=== PATIENT | female | born 1980 | race Hispanic/Latino ===

== ENCOUNTER 2017-12-16 06:36 | Day surgery (SDC) | payer MEDICAID ==
[2017-12-15 13:01] VITALS: BP 99/73
[2017-12-15 13:03] LABS: BASOPHILS % (AUTO) 0.8 % (0.0-5.0); EOSINOPHILS % (AUTO) 3.8 % (0.0-8.0); HEMATOCRIT 44.6 % (36-48); LYMPHOCYTES % (AUTO) 27.5 % (21.0-51.0); MEAN CORPUSCULAR HEMOGLOBIN 32.1 pg (27.0-33.0); MEAN CORPUSCULAR HGB CONC 34.7 g/dL (32.0-36.0); MEAN CORPUSCULAR VOLUME 92.5 fL (79-99); MONOCYTES % (AUTO) 11.2 % (3.0-13.0); NEUTROPHILS % (AUTO) 56.7 % (40.0-77.0); PLATELET COUNT (AUTO) 148 K/uL (130-400); RED BLOOD CELL COUNT(AUTO) 4.82 MIL/uL (4.00-5.50); RED CELL DISTRIBUTION WIDTH 12.3 % (11.0-15.5); WHITE BLOOD COUNT (AUTO) 5.4 K/uL (4.8-10.8)
[2017-12-15 13:05] LABS: APPEARANCE,URINE Cloudy (CLEAR); BILIRUBIN,URINE Small (NEGATIVE); COLOR,URINE Dark Yellow (YELLOW); GLUCOSE, URINE (UA) Negative (NEGATIVE); KETONES,URINE Trace mg/dL (NEGATIVE); LEUKOCYTE ESTERASE ,URINE Small (NEGATIVE); NITRATE,URINE Negative (NEGATIVE); OCCULT BLOOD,URINE Large (NEGATIVE); PH,URINE 5.5 (5.0-8.0); PROTEIN,URINE POS 2+ (NEGATIVE)
[2017-12-15 13:13] LABS: ALBUMIN 3.6 g/dL (3.5-5.0); BILIRUBIN,TOTAL 0.5 mg/dL (0.2-1.0); POTASSIUM 3.4 mmol/L (3.5-5.1); TOTAL PROTEIN, SERUM 8.4 g/dL (6.0-8.3)
[2017-12-15 13:14] LABS: BACTERIA,URINE Rare /HPF (None Seen); SQUAMOUS EPITHELIAL CELL,UR Rare /HPF (0-2); WBC,URINE 0-1 /HPF (0-1)
[2017-12-15 13:15] LABS: MUCUS,URINE Moderate LPF (None Seen)
[2017-12-15 13:20] LABS: INR 1.02 (0.85-1.15); PARTIAL THROMBOPLASTIN TIME 27.5 SEC (26.3-35.5); PROTHROMBIN TIME 10.7 SEC (9.6-11.6)
[~2017-12-16] VITALS: Ht 162.6 cm; Wt 103.9 kg
[2017-12-16] VITALS (16 sets, daily range): BP systolic 111–161; BP diastolic 61–95
[2017-12-16] MEDS: CEFAZOLIN SODIUM 1 GM VIAL IVP SCH ×2 (06:00→07:38)
[~2017-12-16 06:36] MED LIST: ACET-66 PO; FURO20TA6 PO
[2017-12-16] MEDS ORDERED: LACTATED RINGERS 1000ML 1,000 ML IV ONE (07:18)
[2017-12-16] MEDS ORDERED: PROPOFOL 10 MG/ML 20ML VIAL IV ONE (07:33)
[2017-12-16] MEDS ORDERED: ONDANSETRON HCL MDV 20ML 2 MG/ML VIAL ONE (07:33)
[2017-12-16] MEDS ORDERED: SUCCINYLCHOLINE CHLORIDE 20 MG/ML 10 ML VIAL ONE (07:33)
[2017-12-16] MEDS ORDERED: LIDOCAINE PF 2% 5ML ABBOJECT ONE (07:33)
[2017-12-16] MEDS ORDERED: ROCURONIUM BROMIDE 10MG/1ML 5ML VL ONE (07:33)
[2017-12-16] MEDS ORDERED: MIDAZOLAM HCL 1 MG/ML 2ML VIAL ONE (07:33)
[2017-12-16] MEDS ORDERED: FENTANYL CITRATE PF 50 MCG/1 ML 2ML VIAL ONE (07:34)
[2017-12-16] MEDS ORDERED: FAMOTIDINE/PF 20 MG/2 ML VIAL IV ONE (08:19)
[2017-12-16 08:30] LABS: CREATININE 0.7 mg/dL (0.5-1.5); POTASSIUM 3.8 mmol/L (3.5-5.1)
[2017-12-16] MEDS ORDERED: METOPROLOL TARTRATE 1 MG/ML 5ML VIAL IV ONE (08:44)
[2017-12-16] MEDS ORDERED: ESMOLOL HCL 10 MG/ML 10 ML VIAL ONE (08:44)
[2017-12-16] MEDS ORDERED: KETOROLAC TROMETHAMINE 30MG/ML ONE (09:12)
[2017-12-16] MEDS ORDERED: MORPHINE SULFATE 4 MG/1ML SYG ONE (09:13)
== END 2017-12-16 11:00 | disposition home or self-care (01) ==
LOC: DAH 06:36
DX: G56.01 Carpal tunnel syndrome, right upper limb (principal); M65.88 Other synovitis and tenosynovitis, other site; O24.439 Gestational diabetes mellitus in the puerperium, unspecified control; Z79.899 Other long term (current) drug therapy
CPT/HCPCS: 25115; 36415 ×2; 64721; 71045; 80048; 80053; 81001; 84703; 85025; 85610; 85730; 88305; 93005; A4218; A4649; A4930; A6223; A6446; J0330; J0690; J2001; J2250; J2270; J2704; J3010; J3490 ×4; J7120; Q4051; J1885

== ENCOUNTER 2021-11-20 20:11 | Inpatient (IN) | payer MEDICAID ==
[~2021-11-20] VITALS: Ht 162.6 cm; Wt 105.0 kg
[2021-11-20] MEDS ORDERED: 0.9%NACL 1000ML 1,000 ML IV ONE (20:30)
[2021-11-20 20:46] LABS: BASOPHILS % (AUTO) 0.2 % (0.0-5.0); HEMATOCRIT 32.5 % (36-48); MEAN CORPUSCULAR HEMOGLOBIN 23.7 pg (27.0-33.0); MEAN CORPUSCULAR HGB CONC 31.4 g/dL (32.0-36.0); MEAN CORPUSCULAR VOLUME 75.4 fL (79-99); MONOCYTES % (AUTO) 6.1 % (3.0-13.0); NEUTROPHILS % (AUTO) 85.2 % (40.0-77.0); PLATELET COUNT (AUTO) 264 K/uL (130-400); RED BLOOD CELL COUNT(AUTO) 4.31 MIL/uL (4.00-5.50); RED CELL DISTRIBUTION WIDTH 17.5 % (11.0-15.5)
[2021-11-20 20:51] LABS: APPEARANCE,URINE Clear (CLEAR); BILIRUBIN,URINE Negative (NEGATIVE); COLOR,URINE Dark Yellow (YELLOW); GLUCOSE, URINE (UA) Negative (NEGATIVE); KETONES,URINE >=80 mg/dL (NEGATIVE); LEUKOCYTE ESTERASE ,URINE Small (NEGATIVE); NITRATE,URINE Negative (NEGATIVE); OCCULT BLOOD,URINE Trace (NEGATIVE); PROTEIN,URINE POS 1+ mg/dL (NEGATIVE)
[2021-11-20 20:53] LABS: HCG,QUAL RESULT NEGATIVE (NEGATIVE)
[2021-11-20 20:57] LABS: BACTERIA,URINE Few /HPF (None Seen); MUCUS,URINE Few LPF (None Seen); SQUAMOUS EPITHELIAL CELL,UR Moderate /HPF (0-2)
[2021-11-20] MEDS ORDERED: IBUPROFEN 600 MG TABLET PO ONE (21:00)
[2021-11-20] MEDS ORDERED: ONDANSETRON 4MG INJ IVP ONE (21:00)
[2021-11-20] MEDS ORDERED: MORPHINE 4 MG SYG IVP ONE (21:00)
[2021-11-20] MEDS ORDERED: ACETAMINOPHEN 500 MG TABLET PO ONE (21:00)
[2021-11-20] MEDS ORDERED: IOHEXOL-350 75 ML VIAL IV ONE (21:00)
[2021-11-20] MEDS ORDERED: ZOSYN 3.375GM +NS 50ML IV SCH (21:00)
[2021-11-20 21:03] LABS: CREATININE 0.7 mg/dL (0.5-1.5); POTASSIUM 3.4 mmol/L (3.5-5.1)
[2021-11-20 21:08] LABS: ALBUMIN 3.1 g/dL (3.5-5.0); BILIRUBIN,TOTAL 0.4 mg/dL (0.2-1.0); TOTAL PROTEIN, SERUM 8.9 g/dL (6.0-8.3)
[2021-11-21] MEDS ORDERED: 0.9%NACL 1000ML 1,641 ML IV ONE
[2021-11-21] MEDS ORDERED: ONDANSETRON 4MG INJ IV PRN
[2021-11-21] MEDS ORDERED: MORPHINE 2 MG SYG IV PRN
[2021-11-21] MEDS ORDERED: MORPHINE 4 MG SYG ONE (00:23)
[2021-11-21] MEDS: 0.9%NACL 1000ML 1,000 ML IV SCH ×3 (00:43→19:33)
[2021-11-21] MEDS ORDERED: LIDOCAINE HCL-MPF 1% 2ML VIAL IV PRN (01:00)
[2021-11-21] MEDS ORDERED: POTASSIUM CHLORIDE 20MEQ/100ML 100 ML IV PRN (01:00)
[2021-11-21] MEDS ORDERED: POTASSIUM BICARB/CIT AC 25 MEQ TABLET.EFF ONE (01:06)
[2021-11-21 02:55] VITALS: BP 143/82
[2021-11-21] MEDS ORDERED: MELO-108 PO (03:21)
[2021-11-21] MEDS ORDERED: ACET-2079 PO (03:21)
[2021-11-21] MEDS ORDERED: FERR325T29 PO (03:21)
[2021-11-21 03:39] LABS: APPEARANCE,URINE Clear (CLEAR); BILIRUBIN,URINE Negative (NEGATIVE); COLOR,URINE Yellow (YELLOW); GLUCOSE, URINE (UA) Negative (NEGATIVE); KETONES,URINE Negative (NEGATIVE); LEUKOCYTE ESTERASE ,URINE Small (NEGATIVE); NITRATE,URINE Negative (NEGATIVE); OCCULT BLOOD,URINE Trace (NEGATIVE); PH,URINE 6.5 (5.0-8.0); PROTEIN,URINE Trace mg/dL (NEGATIVE); UROBILINOGEN,URINE 0.2 mg/dL (0.2-1.0)
[2021-11-21 03:45] LABS: BACTERIA,URINE Few /HPF (None Seen); RBC,URINE 0-1 /HPF (0-1); SQUAMOUS EPITHELIAL CELL,UR 0-2 /HPF (0-2)
[2021-11-21 05:50] LABS: BASOPHILS % (AUTO) 0.2 % (0.0-5.0); EOSINOPHILS % (AUTO) 0.1 % (0.0-8.0); HEMATOCRIT 32.5 % (36-48); MEAN CORPUSCULAR HEMOGLOBIN 23.5 pg (27.0-33.0); MEAN CORPUSCULAR HGB CONC 30.8 g/dL (32.0-36.0); MEAN CORPUSCULAR VOLUME 76.5 fL (79-99); MONOCYTES % (AUTO) 7.8 % (3.0-13.0); NEUTROPHILS % (AUTO) 76.4 % (40.0-77.0); PLATELET COUNT (AUTO) 258 K/uL (130-400); RED BLOOD CELL COUNT(AUTO) 4.25 MIL/uL (4.00-5.50); RED CELL DISTRIBUTION WIDTH 17.7 % (11.0-15.5); WHITE BLOOD COUNT (AUTO) 13.8 K/uL (4.8-10.8)
[2021-11-21 06:01] LABS: INR 1.16 (0.85-1.15); PROTHROMBIN TIME 12.5 SEC (9.6-11.6)
[2021-11-21 06:02] LABS: PARTIAL THROMBOPLASTIN TIME 26.5 SEC (26.3-35.5)
[2021-11-21 06:07] LABS: CREATININE 0.6 mg/dL (0.5-1.5); MAGNESIUM 2.6 mg/dL (1.80-2.40); PHOSPHORUS 2.9 mg/dL (2.5-4.9); POTASSIUM 3.9 mmol/L (3.5-5.1)
[2021-11-21] MEDS: ZOSYN 3.375GM+NS 50ML 50 ML IV SCH ×3 (06:21→19:34)
[2021-11-21 08:00] VITALS: BP 148/75
[2021-11-21] MEDS: MORPHINE 4 MG SYG IV PRN ×3 (08:43→19:34)
[2021-11-21] MEDS: ACETAMINOPHEN 325 MG TAB PO PRN ×2 (08:44→19:35)
[2021-11-21] MEDS: FAMOTIDINE 20MG VIAL IV SCH ×2 (08:47→19:33)
[2021-11-21 12:00] VITALS: BP 123/60
[2021-11-21 16:00] VITALS: BP 134/77
[2021-11-21 20:00] VITALS: BP 130/76
[2021-11-22] VITALS: BP 115/66
[2021-11-22] MEDS: MORPHINE 4 MG SYG IV PRN ×4 (03:35→23:47)
[2021-11-22 04:00] VITALS: BP 121/66
[2021-11-22] MEDS: ZOSYN 3.375GM+NS 50ML 50 ML IV SCH ×3 (05:13→20:49)
[2021-11-22] MEDS: 0.9%NACL 1000ML 1,000 ML IV SCH (05:20)
[2021-11-22 08:00] VITALS: BP 133/47
[2021-11-22] MEDS: FAMOTIDINE 20MG VIAL IV SCH ×2 (08:56→20:50)
[2021-11-22] MEDS: BISACODYL 10 MG SUPP.RECT RC PRN (10:29)
[2021-11-22] MEDS ORDERED: KETOROLAC 15MG/ML VIAL (15MG/ML) IV PRN (10:30)
[2021-11-22 11:28] VITALS: BP 115/74
[2021-11-22] MEDS: LUBIPROSTONE 24 MCG CAP PO SCH ×2 (13:15→16:05)
[2021-11-22] MEDS: ACETAMINOPHEN 325 MG TAB PO PRN (14:12)
[2021-11-22 16:00] VITALS: BP 145/66
[2021-11-22 20:00] VITALS: BP 108/63
[2021-11-23] VITALS: BP 128/75
[2021-11-23] MEDS: 0.9%NACL 1000ML 1,000 ML IV SCH ×2 (03:00→12:41)
[2021-11-23 04:00] VITALS: BP 123/67
[2021-11-23] MEDS: MORPHINE 4 MG SYG IV PRN (04:38)
[2021-11-23] MEDS: ZOSYN 3.375GM+NS 50ML 50 ML IV SCH ×3 (04:38→20:55)
[2021-11-23 05:43] LABS: BASOPHILS % (AUTO) 0.2 % (0.0-5.0); EOSINOPHILS % (AUTO) 0.3 % (0.0-8.0); HEMATOCRIT 30.6 % (36-48); LYMPHOCYTES % (AUTO) 15.9 % (21.0-51.0); MEAN CORPUSCULAR HGB CONC 29.7 g/dL (32.0-36.0); MEAN CORPUSCULAR VOLUME 77.3 fL (79-99); PLATELET COUNT (AUTO) 241 K/uL (130-400); RED BLOOD CELL COUNT(AUTO) 3.96 MIL/uL (4.00-5.50); RED CELL DISTRIBUTION WIDTH 17.5 % (11.0-15.5); WHITE BLOOD COUNT (AUTO) 12.8 K/uL (4.8-10.8)
[2021-11-23 06:00] LABS: ALBUMIN 2.5 g/dL (3.5-5.0); BILIRUBIN,TOTAL 0.3 mg/dL (0.2-1.0); CREATININE 0.7 mg/dL (0.5-1.5); POTASSIUM 3.4 mmol/L (3.5-5.1)
[2021-11-23] MEDS ORDERED: POTASSIUM CHLORIDE 10% ELIXIR 20 MEQ/15 ML UDCUP PO PRN (06:30)
[2021-11-23] MEDS ORDERED: LIDOCAINE HCL-MPF 1% 2ML VIAL IV PRN (06:30)
[2021-11-23] MEDS ORDERED: POTASSIUM CHLORIDE 20MEQ/100ML 100 ML IV PRN (06:30)
[2021-11-23 08:00] VITALS: BP 147/68
[2021-11-23] MEDS: KCL 20 MEQ ERTAB PO PRN ×2 (08:38→15:24)
[2021-11-23] MEDS: FAMOTIDINE 20MG VIAL IV SCH ×2 (08:38→20:55)
[2021-11-23] MEDS: LUBIPROSTONE 24 MCG CAP PO SCH ×2 (08:38→17:29)
[2021-11-23] MEDS: HYDROCODONE/ACETAMINOPHEN 5/325 MG TAB PO PRN ×3 (10:07→18:51)
[2021-11-23 12:00] VITALS: BP 126/66
[2021-11-23 16:00] VITALS: BP 137/52
[2021-11-23 20:00] VITALS: BP 119/62
[2021-11-23] MEDS: ACETAMINOPHEN 325 MG TAB PO PRN (23:06)
[2021-11-24] VITALS (7 sets, daily range): BP systolic 106–137; BP diastolic 53–82
[2021-11-24] MEDS: HYDROCODONE/ACETAMINOPHEN 5/325 MG TAB PO PRN ×4 (01:27→22:55)
[2021-11-24] MEDS: 0.9%NACL 1000ML 1,000 ML IV SCH (02:01)
[2021-11-24 03:47] LABS: BASOPHILS % (AUTO) 0.3 % (0.0-5.0); HEMATOCRIT 30.5 % (36-48); MEAN CORPUSCULAR HEMOGLOBIN 23.8 pg (27.0-33.0); MEAN CORPUSCULAR HGB CONC 30.8 g/dL (32.0-36.0); MEAN CORPUSCULAR VOLUME 77.2 fL (79-99); MONOCYTES % (AUTO) 8.1 % (3.0-13.0); NEUTROPHILS % (AUTO) 70.9 % (40.0-77.0); PLATELET COUNT (AUTO) 250 K/uL (130-400); RED BLOOD CELL COUNT(AUTO) 3.95 MIL/uL (4.00-5.50); RED CELL DISTRIBUTION WIDTH 17.5 % (11.0-15.5)
[2021-11-24 04:05] LABS: ALBUMIN 2.3 g/dL (3.5-5.0); BILIRUBIN,TOTAL 0.3 mg/dL (0.2-1.0); CREATININE 0.7 mg/dL (0.5-1.5); POTASSIUM 3.8 mmol/L (3.5-5.1); TOTAL PROTEIN, SERUM 7.9 g/dL (6.0-8.3)
[2021-11-24] MEDS: ZOSYN 3.375GM+NS 50ML 50 ML IV SCH ×3 (04:45→20:42)
[2021-11-24] MEDS: KCL 20 MEQ ERTAB PO PRN (06:12)
[2021-11-24] MEDS: LUBIPROSTONE 24 MCG CAP PO SCH ×2 (08:00→16:19)
[2021-11-24] MEDS: FAMOTIDINE 20MG VIAL IV SCH ×2 (09:20→20:06)
[2021-11-24] MEDS: MORPHINE 4 MG SYG IV PRN ×3 (09:23→20:07)
[2021-11-24] MEDS ORDERED: DIATR MEGLU/DIATRIZOATE SODIUM 30 ML BOTTLE ONE ×2 (10:26→17:40)
[2021-11-24] MEDS ORDERED: IOHEXOL-350 75 ML VIAL IV ONE (14:27)
[2021-11-25] MEDS: MORPHINE 4 MG SYG IV PRN ×5 (02:18→20:18)
[2021-11-25 04:27] VITALS: BP 127/60
[2021-11-25] MEDS: ZOSYN 3.375GM+NS 50ML 50 ML IV SCH ×3 (06:02→20:18)
[2021-11-25] MEDS: 0.9%NACL 1000ML 1,000 ML IV SCH ×2 (06:13→18:01)
[2021-11-25 08:00] VITALS: BP 119/65
[2021-11-25] MEDS: LUBIPROSTONE 24 MCG CAP PO SCH ×2 (08:00→17:00)
[2021-11-25] MEDS: FAMOTIDINE 20MG VIAL IV SCH ×2 (09:00→20:18)
[2021-11-25] MEDS: HYDROCODONE/ACETAMINOPHEN 5/325 MG TAB PO PRN (10:22)
[2021-11-25 11:30] VITALS: BP 115/60
[2021-11-25] MEDS ORDERED: FENTANYL CITRATE PF 50 MCG/1 ML 2ML VIAL ONE (13:09)
[2021-11-25] MEDS ORDERED: MIDAZOLAM HCL 1 MG/ML 2ML VIAL ONE (13:10)
[2021-11-25 15:30] VITALS: BP 111/63
[2021-11-25] MEDS ORDERED: LIDOCAINE HCL 400MG/20ML VIAL ONE (16:38)
[2021-11-25 19:20] VITALS: BP 136/85
[2021-11-25 23:32] VITALS: BP 144/72
[2021-11-26] MEDS: MORPHINE 4 MG SYG IV PRN (00:11)
[2021-11-26] MEDS: HYDROCODONE/ACETAMINOPHEN 5/325 MG TAB PO PRN ×4 (03:17→19:41)
[2021-11-26 04:21] VITALS: BP 108/69
[2021-11-26 04:40] LABS: BASOPHILS % (AUTO) 0.3 % (0.0-5.0); HEMATOCRIT 30.6 % (36-48); LYMPHOCYTES % (AUTO) 20.6 % (21.0-51.0); MEAN CORPUSCULAR HEMOGLOBIN 23.4 pg (27.0-33.0); MEAN CORPUSCULAR VOLUME 75.4 fL (79-99); MONOCYTES % (AUTO) 8.5 % (3.0-13.0); NEUTROPHILS % (AUTO) 67.7 % (40.0-77.0); PLATELET COUNT (AUTO) 271 K/uL (130-400); RED BLOOD CELL COUNT(AUTO) 4.06 MIL/uL (4.00-5.50); RED CELL DISTRIBUTION WIDTH 17.7 % (11.0-15.5); WHITE BLOOD COUNT (AUTO) 9.1 K/uL (4.8-10.8)
[2021-11-26 04:52] LABS: CREATININE 0.7 mg/dL (0.5-1.5); POTASSIUM 3.8 mmol/L (3.5-5.1)
[2021-11-26] MEDS: ZOSYN 3.375GM+NS 50ML 50 ML IV SCH ×3 (05:35→19:41)
[2021-11-26] MEDS: 0.9%NACL 1000ML 1,000 ML IV SCH ×2 (07:21→19:48)
[2021-11-26 08:00] VITALS: BP 125/79
[2021-11-26] MEDS: LUBIPROSTONE 24 MCG CAP PO SCH ×2 (08:39→17:19)
[2021-11-26] MEDS: FAMOTIDINE 20MG VIAL IV SCH ×2 (08:39→19:41)
[2021-11-26 12:00] VITALS: BP 126/65
[2021-11-26] MEDS ORDERED: METR-172 PO (13:02)
[2021-11-26] MEDS ORDERED: AMOX-426 PO (13:02)
[2021-11-26] MEDS ORDERED: ACET-2079 PO (13:37)
[2021-11-26 16:00] VITALS: BP 121/69
[2021-11-26 20:00] VITALS: BP 108/76
[2021-11-26] MEDS: ACETAMINOPHEN 325 MG TAB PO PRN (22:31)
[2021-11-27] VITALS: BP 109/63
[2021-11-27 04:00] VITALS: BP 109/60
[2021-11-27] MEDS: ZOSYN 3.375GM+NS 50ML 50 ML IV SCH ×2 (05:10→13:14)
[2021-11-27 05:37] LABS: BASOPHILS % (AUTO) 0.4 % (0.0-5.0); EOSINOPHILS % (AUTO) 2.8 % (0.0-8.0); HEMATOCRIT 30.7 % (36-48); LYMPHOCYTES % (AUTO) 23.3 % (21.0-51.0); MEAN CORPUSCULAR HEMOGLOBIN 23.2 pg (27.0-33.0); MEAN CORPUSCULAR HGB CONC 30.3 g/dL (32.0-36.0); MEAN CORPUSCULAR VOLUME 76.6 fL (79-99); MONOCYTES % (AUTO) 8.8 % (3.0-13.0); NEUTROPHILS % (AUTO) 63.9 % (40.0-77.0); PLATELET COUNT (AUTO) 260 K/uL (130-400); RED BLOOD CELL COUNT(AUTO) 4.01 MIL/uL (4.00-5.50); RED CELL DISTRIBUTION WIDTH 17.5 % (11.0-15.5); WHITE BLOOD COUNT (AUTO) 7.8 K/uL (4.8-10.8)
[2021-11-27 05:49] LABS: CREATININE 0.6 mg/dL (0.5-1.5); POTASSIUM 3.5 mmol/L (3.5-5.1)
[2021-11-27 08:00] VITALS: BP 117/70
[2021-11-27] MEDS: FAMOTIDINE 20MG VIAL IV SCH (09:06)
[2021-11-27] MEDS: LUBIPROSTONE 24 MCG CAP PO SCH (09:10)
[2021-11-27] MEDS: BISACODYL 10 MG SUPP.RECT RC PRN (09:27)
[2021-11-27] MEDS: HYDROCODONE/ACETAMINOPHEN 5/325 MG TAB PO PRN (09:27)
[2021-11-27] MEDS: 0.9%NACL 1000ML 1,000 ML IV SCH (10:01)
[2021-11-27] MEDS: ACETAMINOPHEN 325 MG TAB PO PRN (11:30)
[2021-11-27 12:00] VITALS: BP 123/55
[2021-11-27] MEDS: KCL 20 MEQ ERTAB PO PRN (13:14)
[2021-12-04] MEDS ORDERED: ACET-2079 PO (14:52)
[2021-12-04] MEDS ORDERED: AMOX1TAB16 PO (14:52)
[2021-12-04] MEDS ORDERED: DOXY100C5 PO (14:52)
== END 2021-11-27 17:30 | disposition home or self-care (01) | DRG 721 ==
LOC: EDH 20:11 → EDHIP 20:12 → 3CH 11-21 02:17 → 3DH 11-24 16:43
PROVIDERS: ADMIT Internal Medicine; ATTEND Internal Medicine
PROC: 0W9J30Z Drainage of Pelvic Cavity with Drainage Device, Percutaneous Approach (ICD-10-PCS; principal; 2021-11-27)
DX: T81.49XA Infection following a procedure, other surgical site, initial encounter (principal); K65.1 Peritoneal abscess; A41.9 Sepsis, unspecified organism; N39.0 Urinary tract infection, site not specified; E87.6 Hypokalemia; D64.9 Anemia, unspecified; Y83.8 Other surgical procedures as the cause of abnormal reaction of the patient, or of later complication, without mention of misadventure at the time of the procedure; E66.01 Morbid (severe) obesity due to excess calories; Z82.49 Family history of ischemic heart disease and other diseases of the circulatory system; Z83.3 Family history of diabetes mellitus; Z82.5 Family history of asthma and other chronic lower respiratory diseases; Z90.710 Acquired absence of both cervix and uterus; Z68.39 Body mass index [BMI] 39.0-39.9, adult; Y92.89 Other specified places as the place of occurrence of the external cause
CPT/HCPCS: 10030; 36415; 74177; 77012; 80048; 80053; 81001; 81025; 83605; 83690; 83735; 84100; 84145; 84484; 85025; 85610; 85730; 86850; 86900; 86901; 87040; 87071; 87088; 87205; 87635; 87804; 93005; 99152; 99153; C9803; G0378; J1885; J2250; J2270; J2405; J2543; J3010; J3490; J7030; Q9963; Q9967

== ENCOUNTER 2021-12-05 07:33 | Day surgery (SDC) | payer MEDICAID ==
[2021-12-04 14:42] LABS: BASOPHILS % (AUTO) 0.5 % (0.0-5.0); EOSINOPHILS % (AUTO) 3.6 % (0.0-8.0); HEMATOCRIT 33.6 % (36-48); LYMPHOCYTES % (AUTO) 36.3 % (21.0-51.0); MEAN CORPUSCULAR HEMOGLOBIN 23.2 pg (27.0-33.0); MEAN CORPUSCULAR HGB CONC 29.5 g/dL (32.0-36.0); MEAN CORPUSCULAR VOLUME 78.7 fL (79-99); MONOCYTES % (AUTO) 9.8 % (3.0-13.0); NEUTROPHILS % (AUTO) 49.6 % (40.0-77.0); PLATELET COUNT (AUTO) 310 K/uL (130-400); RED BLOOD CELL COUNT(AUTO) 4.27 MIL/uL (4.00-5.50); RED CELL DISTRIBUTION WIDTH 18.1 % (11.0-15.5); WHITE BLOOD COUNT (AUTO) 5.8 K/uL (4.8-10.8)
[2021-12-04 14:50] LABS: CREATININE 0.6 mg/dL (0.5-1.5); POTASSIUM 4.4 mmol/L (3.5-5.1)
[2021-12-04 14:52] LABS: INR 1.1 (0.85-1.15); PROTHROMBIN TIME 11.9 SEC (9.6-11.6)
[2021-12-04 14:53] LABS: PARTIAL THROMBOPLASTIN TIME 25.2 SEC (26.3-35.5)
[~2021-12-05] VITALS: Ht 162.6 cm; Wt 105.8 kg
[~2021-12-05 07:33] MED LIST changes: +ACET-2079 PO; -ACET-66 PO; +AMOX1TAB16 PO; +DOXY100C5 PO; -FURO20TA6 PO
[2021-12-05] MEDS ORDERED: 0.9%NACL 1000ML 1,000 ML IV ONE (08:35)
[2021-12-05] MEDS ORDERED: IOHEXOL-350 75 ML VIAL IV ONE ×2 (09:11→09:13)
== END 2021-12-05 10:28 | disposition home or self-care (01) ==
LOC: DAH 07:33
PROVIDERS: ATTEND Obstetrics & Gynecology
DX: N73.8 Other specified female pelvic inflammatory diseases (principal); Z79.01 Long term (current) use of anticoagulants; Z79.899 Other long term (current) drug therapy; Z98.890 Other specified postprocedural states
CPT/HCPCS: 20501; 36415; 76080; 80048; 85025; 85610; 85730; A4215; A4216; A4221; A4222; A4223 ×3; A4606; A4663; J7030; Q9967

== ENCOUNTER 2023-10-21 16:36 | Emergency (ER) | payer MEDICAID, OTHER ==
[~2023-10-21] VITALS: Ht 162.6 cm; Wt 104.3 kg
[2023-10-21] MEDS ORDERED: PRED20TA3 PO (19:31)
[2023-10-21] MEDS ORDERED: IBUP-2070 PO (19:31)
[2023-10-21] MEDS: DEXAMETHASONE SOD PHOSPHATE 4 MG/ML 1ML VIAL IM ONE (19:50)
[2023-10-21 19:51] VITALS: BP 149/86; PULSE 66; RESP 16; O2SAT 97
[2023-10-21] MEDS: KETOROLAC 60 MG VIAL (30MG/ML) IM ONE (19:51)
== END 2023-10-21 20:17 | disposition home or self-care (01) ==
LOC: EDH 16:36
DX: M77.32 Calcaneal spur, left foot (principal); Z79.899 Other long term (current) drug therapy; Z98.890 Other specified postprocedural states; Z90.710 Acquired absence of both cervix and uterus; Z88.8 Allergy status to other drugs, medicaments and biological substances
CPT/HCPCS: 99284; 73610; 96372 ×2; J1100; J1885